=== PATIENT | male | born 1935 | race Caucasian/White ===

== ENCOUNTER 2022-02-27 05:42 | Emergency (ER) | payer MEDICARE ==
[2022-02-27] MEDS ORDERED: Lorazepam 2 MG/ML VIAL ONE (06:13)
[2022-02-27 06:46] LABS: Hemoglobin 10.3 g/dL (13.5-17.5); Mean Corpuscular HGB CONC 32.1 g/dL (32.0-36.0); Mean Corpuscular Hemoglobin 29.6 pg (27.0-33.0); Mean Corpuscular Volume 92.2 fl (81.2-95.1); Platelet Count 161 10x3/uL (150-450); RBC Distribution Width 15.4 % (11.5-14.5); Red Blood Cell (RBC) Count 3.48 10x6/uL (4.32-5.72); White Blood Cell (WBC) Count 2.6 10x3/uL (3.5-10.5)
[2022-02-27 06:59] LABS: ALT (SGPT) 8 U/L (8-55); AST (SGOT) 13 U/L (5-34); Alkaline Phosphatase 37 U/L (40-110); Anion Gap 16 mmol/L (10-20); BUN (Urea Nitrogen) 14 mg/dL (8.4-25.7); Bilirubin, Total 0.5 mg/dL (0.2-1.2); CK (CPK) 90 U/L (30-200); Calc. Creatinine Clearance 0 mL/min (70-130); Calcium 8.8 mg/dL (7.8-10.44); Carbon Dioxide 22 mmol/L (23-31); Chloride 108 mmol/L (98-107); Globulin 1.9 g/dL (2.4-3.5); Glucose 101 mg/dL (83-110); MDiff Complete? YES; Potassium 4.3 mmol/L (3.5-5.1); Protein, Total 5.9 g/dL (5.8-8.1); Sodium 142 mmol/L (136-145)
[2022-02-27 07:31] LABS: Eosinophils 3 % (0-10); Lymphocytes 52 % (21-51); Monocytes 7 % (0-10); Neutrophil 36 % (42-75); Reactive Lymphocytes 2 % (0-10)
[2022-02-27 07:36] LABS: Ovalocytes SLIGHT = 2-5 cells (100X) (0-1/hpf); Platelet Morphology Comment Appears Adequate
== END 2022-02-27 07:35 | disposition home or self-care (01) ==
LOC: CSHERS 05:42
DX: F41.9 Anxiety disorder, unspecified (principal); E78.2 Mixed hyperlipidemia; I10 Essential (primary) hypertension; Z79.899 Other long term (current) drug therapy; Z79.82 Long term (current) use of aspirin
CPT/HCPCS: 80053; 82550; 84484; 85025; 93005; 96374; J2060

== ENCOUNTER 2023-03-20 19:56 | Observation (INO) | payer MEDICARE ==
[~2023-03-20 19:56] MED LIST: Iopamidol 370 76% 100 ML VIAL ONE
[2023-03-20 20:32] LABS: #Monocytes 0.6 10x3/uL (0.0-1.1); #Neutrophils 4.5 10x3/uL (1.5-8.4); %Basophils 0.5 % (0.0-2.0); %Eosinophils 0.7 % (0.0-6.0); %Lymphocytes 16.7 % (18.0-47.0); %Neutrophils 72.9 % (40.0-75.0); Hemoglobin 11.1 g/dL (13.5-17.5); Mean Corpuscular HGB CONC 32.5 g/dL (32.0-36.0); Mean Corpuscular Hemoglobin 29.2 pg (27.0-33.0); Mean Platelet Volume 13.3 fl (7.4-10.4); Platelet Count 158 10x3/uL (150-450); RBC Distribution Width 15.2 % (11.5-14.5); White Blood Cell (WBC) Count 6.1 10x3/uL (3.5-10.5)
[2023-03-20 20:47] LABS: ALT (SGPT) 8 U/L (8-55); AST (SGOT) 13 U/L (5-34); Albumin 4.6 g/dL (3.4-4.8); Alkaline Phosphatase 37 U/L (40-110); Anion Gap 16 mmol/L (10-20); BUN (Urea Nitrogen) 25 mg/dL (8.4-25.7); Bilirubin, Total 0.5 mg/dL (0.2-1.2); Calc. Creatinine Clearance 0 mL/min (70-130); Calcium 9.2 mg/dL (7.8-10.44); Carbon Dioxide 22 mmol/L (23-31); Chloride 106 mmol/L (98-107); Estimated GFR 56; Glucose 132 mg/dL (83-110); Lipase 218 U/L (8-78); Magnesium 1.8 mg/dL (1.6-2.6); Potassium 4.8 mmol/L (3.5-5.1); Protein, Total 6.6 g/dL (5.8-8.1); Sodium 139 mmol/L (136-145)
[2023-03-20] MEDS ORDERED: Morphine 4 MG/ML VIAL ONE (20:56)
[2023-03-20] MEDS ORDERED: Promethazine HCl 25 MG, Admixture Fee 1 EACH in Sodium Chloride 0.9% 50 ML IVPB SCH (21:00)
[2023-03-20] MEDS ORDERED: fentaNYL 50 mcg/mL 1 mL Vial ONE (22:13)
[2023-03-20] MEDS ORDERED: hydrALAZINE 20 MG/ML VIAL SLOW IVP PRN (22:39)
[2023-03-20] MEDS ORDERED: HYDROcodone/Acetaminophen 7.5/325 mg Tablet PO PRN (22:40)
[2023-03-20] MEDS ORDERED: Ondansetron PF 4 MG/2 ML Vial IVP PRN (23:28)
[2023-03-21] MEDS ORDERED: Ketorolac Tromethamine 30 MG/ML VIAL ONE (00:29)
[2023-03-21] MEDS ORDERED: Pyridostigmine Bromide IR 60 MG TAB PO SCH ×2 (00:30→09:00)
[2023-03-21] MEDS ORDERED: Sodium Chloride 0.9% 1,000 ML IV SCH (00:30)
[2023-03-21] MEDS ORDERED: Ketorolac Tromethamine 30 MG/ML VIAL IVP SCH (00:30)
[2023-03-21] MEDS ORDERED: Mycophenolate 250 MG CAP PO SCH ×2 (00:30→09:00)
[2023-03-21 03:58] LABS: #Neutrophils 6.7 10x3/uL (1.5-8.4); %Basophils 0.2 % (0.0-2.0); %Lymphocytes 5.7 % (18.0-47.0); %Monocytes 12.2 % (0.0-10.0); %Neutrophils 81.5 % (40.0-75.0); Hemoglobin 10.2 g/dL (13.5-17.5); Mean Corpuscular HGB CONC 32.1 g/dL (32.0-36.0); Mean Corpuscular Hemoglobin 29.2 pg (27.0-33.0); Mean Corpuscular Volume 91.1 fl (81.2-95.1); Mean Platelet Volume 13.5 fl (7.4-10.4); Platelet Count 143 10x3/uL (150-450); RBC Distribution Width 15.4 % (11.5-14.5); Red Blood Cell (RBC) Count 3.49 10x6/uL (4.32-5.72); White Blood Cell (WBC) Count 8.2 10x3/uL (3.5-10.5)
[2023-03-21 04:13] LABS: ALT (SGPT) 14 U/L (8-55); AST (SGOT) 18 U/L (5-34); Albumin 3.9 g/dL (3.4-4.8); Alkaline Phosphatase 32 U/L (40-110); Anion Gap 12 mmol/L (10-20); BUN (Urea Nitrogen) 23 mg/dL (8.4-25.7); Bilirubin, Total 0.4 mg/dL (0.2-1.2); Calc. Creatinine Clearance 0 mL/min (70-130); Calcium 8.7 mg/dL (7.8-10.44); Carbon Dioxide 24 mmol/L (23-31); Chloride 106 mmol/L (98-107); Estimated GFR 65; Glucose 144 mg/dL (83-110); Lipase 28 U/L (8-78); Potassium 5.2 mmol/L (3.5-5.1); Protein, Total 5.9 g/dL (5.8-8.1); Sodium 137 mmol/L (136-145)
[2023-03-21] MEDS ORDERED: Lisinopril 10 MG TAB PO SCH (09:00)
[2023-03-21] MEDS ORDERED: Amlodipine 5 MG TAB PO SCH (09:00)
[2023-03-21] MEDS ORDERED: Donepezil HCl 5 MG TAB PO SCH (09:00)
[2023-03-21] MEDS ORDERED: Tamsulosin HCl 0.4 MG CAP PO SCH (09:00)
[2023-03-21 10:48] VITALS: BP 154/61; TEMP 98.5
== END 2023-03-21 15:34 | disposition home or self-care (01) ==
LOC: CSHERS 19:56 → CSHERHOLD 23:57 → INTOOBSV 23:57
PROVIDERS: ADMIT Internal Medicine; ATTEND Family Medicine
DX: J93.83 Other pneumothorax (principal); I10 Essential (primary) hypertension; K76.89 Other specified diseases of liver; N28.1 Cyst of kidney, acquired; G70.00 Myasthenia gravis without (acute) exacerbation; E78.00 Pure hypercholesterolemia, unspecified; D64.9 Anemia, unspecified; R74.8 Abnormal levels of other serum enzymes; Z79.82 Long term (current) use of aspirin; Z79.899 Other long term (current) drug therapy; Z90.49 Acquired absence of other specified parts of digestive tract; Z90.89 Acquired absence of other organs
CPT/HCPCS: 71045; 71275; 74174; 80053 ×2; 83690 ×2; 83735; 84484; 85025 ×2; 93005; 96365; 96375 ×2; 99285; G0378 ×2; J3010; 36415; J1885; J2270; J2550; J7050; J7517; Q9967

== ENCOUNTER 2023-11-20 19:52 | Emergency (ER) | payer MEDICARE ==
[2023-11-20] MEDS ORDERED: Lidocaine 1% PF 5 ML VIAL ONE (20:17)
[2023-11-20] MEDS ORDERED: Lidocaine 1% w/Epinephrine 1:200K 30 ML VIAL ONE (20:26)
[2023-11-20] MEDS ORDERED: Amoxicillin/Potassium Clav 875 MG TAB ONE (22:07)
[2023-11-20] MEDS ORDERED: Boostrix 0.5 ML (Tdap) VIAL (>/=7 yrs of age) ONE (22:07)
== END 2023-11-20 22:52 | disposition home or self-care (01) ==
LOC: CSHERS 19:52
DX: S01.511A Laceration without foreign body of lip, initial encounter (principal); I10 Essential (primary) hypertension; Y92.015 Private garage of single-family (private) house as the place of occurrence of the external cause; Z23 Encounter for immunization
CPT/HCPCS: 12051; 70450; 90471; 90715